=== PATIENT | male | born 1985 | race Caucasian/White ===

== ENCOUNTER 2025-03-05 20:54 | Emergency (ER) | payer OTHER ==
[2025-03-05 21:31] LABS: Anion Gap 12 mmol/L (10-20); BUN (Urea Nitrogen) 25 mg/dL (8.9-20.6); Calc. Creatinine Clearance 0 mL/min (70-130); Calcium 9.7 mg/dL (7.8-10.44); Carbon Dioxide 30 mmol/L (22-29); Chloride 105 mmol/L (98-107); Glucose 72 mg/dL (70-105); Potassium 4.4 mmol/L (3.5-5.1); Sodium 143 mmol/L (136-145)
== END 2025-03-05 21:56 ==
LOC: NAV ERS 20:54
DX: R79.9 Abnormal finding of blood chemistry, unspecified (principal); Z87.891 Personal history of nicotine dependence
CPT/HCPCS: 36415; 80048; 99283